=== PATIENT | male | born 1970 | race Caucasian/White ===

== ENCOUNTER 2017-08-04 05:12 | Emergency (ER) | payer SELFPAY ==
[~2017-08-04] VITALS: Ht 172.7 cm; Wt 112.0 kg
[2017-08-04 05:28] VITALS: BP 143/87; PULSE 90; RESP 18; TEMP 98.1; O2SAT 98
[2017-08-04] MEDS ORDERED: KETOROLAC TROMETHAMINE 30 MG/ML (IVP) VIAL IVP ONE (07:45)
[2017-08-04] MEDS ORDERED: SODIUM CHLORIDE 0.9% FLUSH 10 ML FLUSH IV FLUSH PRN (07:45)
[2017-08-04 07:47] VITALS: BP 152/83; PULSE 83; RESP 18; O2SAT 99
[2017-08-04] MEDS ORDERED: METF1000 PO (07:49)
[2017-08-04] MEDS ORDERED: XANA1TAB2 PO (07:49)
[2017-08-04] MEDS ORDERED: MONT10TA2 PO (07:49)
[2017-08-04] MEDS ORDERED: FISHCAP4 PO (07:49)
[2017-08-04] MEDS ORDERED: ASPI-146 PO (07:49)
[2017-08-04] MEDS ORDERED: ROSU1TAB8 PO (07:49)
[2017-08-04] MEDS ORDERED: OMEP20TA93 PO (07:49)
[2017-08-04] MEDS ORDERED: EMPA1TAB PO (07:49)
[2017-08-04] MEDS ORDERED: METO25TA3 PO (07:49)
[2017-08-04] MEDS ORDERED: LISI-515 PO (07:49)
--- NOTE | 2017-08-04 07:49 | PD ---
HPI Chief Complaint: Abdominal Pain Time Seen by Provider: 07:44 Travel History International Travel<30 days: No Contact w/Intl Traveler<30days: No Traveled to known affect area: No History of Present Illness HPI Patient presents with complaints of left lower quadrant abdominal pain for approximately 2 weeks. Reports completion of antibiotics for diverticulitis without resolution of symptoms. History of colonoscopy about a year ago with diverticuli. Reports a single episode of blood per stool approximately 2 weeks ago. Denies nausea vomiting diarrhea or fever. No new rashes. PFSH Past Medical History ?: Not Social History Tobacco Use: No Allergies-Medications (Allergen,Severity, Reaction): Coded Allergies: No Known Allergies (Verified Allergy, Unknown, 08/04/17) Reported Meds & Prescriptions Reported Meds & Active Scripts Active Reported Fish Oil + D3 (Fish Oil-Cholecalciferol) 1,200-1,000 Mg-Unit Cap 1 Cap PO DAILY Singulair (Montelukast Sodium) 10 Mg Tab 10 Mg PO HS Rosuvastatin (Rosuvastatin Calcium) 20 Mg Tab 20 Mg PO HS Xanax (Alprazolam) 1 Mg Tab 1 Mg PO Q6H PRN Lisinopril 20 Mg Tab 20 Mg PO DAILY Omeprazole 20 Mg Tab 20 Mg PO DAILY Ecotrin Regular Strength (Aspirin) 325 Mg Tabdr 325 Mg PO DAILY Metoprolol Tartrate 25 Mg Tab 25 Mg PO BID Jardiance (Empagliflozin) 10 Mg Tab 10 Mg PO DAILY Metformin (Metformin HCl) 1,000 Mg Tab 1,000 Mg PO BIDPC Review of Systems General / Constitutional: No: Fever Eyes: No: Visual changes HENT: No: Headaches Cardiovascular: No: Chest Pain or Discomfort Respiratory: No: Shortness of Breath Gastrointestinal: Positive: Abdominal Pain Genitourinary: No: Dysuria Musculoskeletal: No: Pain Skin: No Rash Neurologic: No: Weakness Psychiatric: No: Depression Endocrine: No: Polydipsia Hematologic/Lymphatic: No: Easy Bruising Physical Exam Narrative GENERAL: Well-nourished, well-developed patient. SKIN: Focused skin assessment warm/dry. HEAD: Normocephalic. EYES: No scleral icterus. No injection or drainage. NECK: Supple, trachea midline. No JVD or lymphadenopathy. CARDIOVASCULAR: Regular rate and rhythm without murmurs, gallops, or rubs. RESPIRATORY: Breath sounds equal bilaterally. No accessory muscle use. GASTROINTESTINAL: Abdomen soft, tender left lower quadrant positive rebound tenderness no guarding no hepatosplenomegaly, nondistended. MUSCULOSKELETAL: No cyanosis, or edema. BACK: Nontender without obvious deformity. No CVA tenderness. Data Data Last Documented VS Vital Signs Date Time Temp Pulse Resp B/P (MAP) Pulse Ox O2 Delivery O2 Flow Rate FiO2 08/04/17 08:43 85 18 144/71 (95) 99 08/04/17 07:47 Room Air 08/04/17 05:28 98.1 Orders Orders Complete Blood Count With Diff (08/04/17 07:44) Comprehensive Metabolic Panel (08/04/17 07:44) Lactic Acid (08/04/17 07:44) Ct Abd/Pel W Iv Contrast(Rout) (08/04/17 07:44) Iv Access Insert/Monitor (08/04/17 07:44) Ecg Monitoring (08/04/17 07:44) Oximetry (08/04/17 07:44) Sodium Chloride 0.9% Flush (Ns Flush) (08/04/17 07:45) Ketorolac Inj (Toradol Inj) (08/04/17 07:45) Piperacil-Tazo 3.375 Gm Premix (Zosyn 3. (08/04/17 09:45) Labs Laboratory Tests Test 08/04/17 07:50 White Blood Count 5.5 TH/MM3 Red Blood Count 5.50 MIL/MM3 Hemoglobin 15.4 GM/DL Hematocrit 45.6 % Mean Corpuscular Volume 82.9 FL Mean Corpuscular Hemoglobin 27.9 PG Mean Corpuscular Hemoglobin Concent 33.7 % Red Cell Distribution Width 13.1 % Platelet Count 165 TH/MM3 Mean Platelet Volume 9.1 FL Neutrophils (%) (Auto) 65.8 % Lymphocytes (%) (Auto) 21.6 % Monocytes (%) (Auto) 9.5 % Eosinophils (%) (Auto) 2.6 % Basophils (%) (Auto) 0.5 % Neutrophils # (Auto) 3.7 TH/MM3 Lymphocytes # (Auto) 1.2 TH/MM3 Monocytes # (Auto) 0.5 TH/MM3 Eosinophils # (Auto) 0.1 TH/MM3 Basophils # (Auto) 0.0 TH/MM3 CBC Comment DIFF FINAL Differential Comment Blood Urea Nitrogen 7 MG/DL Creatinine 1.10 MG/DL Random Glucose 160 MG/DL Total Protein 7.7 GM/DL Albumin 3.8 GM/DL Calcium Level 9.0 MG/DL Alkaline Phosphatase 80 U/L Aspartate Amino Transf (AST/SGOT) 59 U/L Alanine Aminotransferase (ALT/SGPT) 65 U/L Total Bilirubin 0.4 MG/DL Sodium Level 138 MEQ/L Potassium Level 4.1 MEQ/L Chloride Level 103 MEQ/L Carbon Dioxide Level 29.6 MEQ/L Anion Gap 5 MEQ/L Estimat Glomerular Filtration Rate 71 ML/MIN Lactic Acid Level 2.2 mmol/L [facility] Medical Decision Making Medical Screen Exam Complete: Yes Emergency Medical Condition: Yes Differential Diagnosis Diverticulitis, colitis, ischemic bowel, constipation Narrative Course Assessment plan discussed with patient and at bedside. CT the abdomen showed no acute intra-abdominal process. Prophylaxis for diverticulitis secondary to clinical presentation. 1. Mild hepatosplenomegaly. 2. Uncomplicated colonic diverticulosis. 3. 17 x 13 mm left adrenal myelolipoma. 4. Small left inguinal hernia containing only fat. 5. Mild degenerative changes and scoliosis of the thoracolumbar spine. Diagnosis Primary Impression: Abdominal pain Qualified Codes: R10.32 - Left lower quadrant pain Patient Instructions: General Instructions Additional Instructions: Encouraged to keep regular scheduled appointment with GI. Encouraged to return to emerge from with any onset of new symptoms. Encouraged a bland brat high- fiber diet. Med/Other Pt SpecificInfo: Prescription(s) given Scripts Metronidazole (Flagyl) 500 Mg Tab 500 MG PO BID for Infection, #14 TAB 0 Refills Prov: Jm Rg MD 08/04/17 Ciprofloxacin (Cipro) 500 Mg Tab 500 MG PO BID for Infection for 7 Days, #14 TAB 0 Refills Prov: Jm Rg MD 08/04/17 Tramadol (Ultram) 50 Mg Tab 50 MG PO Q6H Y for PAIN, #15 TAB 0 Refills Prov: Jm Rg MD 08/04/17 Disposition: 01 DISCHARGE HOME Condition: Good Jm Rg MD Aug 04, 2017 07:49
[2017-08-04 08:04] LABS: AUTOMATED NEUTROPHIL # 3.7 TH/MM3 (1.8-7.7); BASOPHIL % 0.5 % (0.0-2.0); EOSINOPHIL # 0.1 TH/MM3 (0-0.4); EOSINOPHIL % 2.6 % (0.0-4.0); HEMATOCRIT 45.6 % (39.0-51.0); HEMOGLOBIN 15.4 GM/DL (13.0-17.0); LYMPH % 21.6 % (9.0-44.0); LYMPHOCYTE # 1.2 TH/MM3 (1.0-4.8); MEAN CELL VOLUME 82.9 FL (80.0-100.0); MEAN CORPUSCULAR HEMOGLOBIN 27.9 PG (27.0-34.0); MEAN CORPUSCULAR HGB CONC 33.7 % (32.0-36.0); MEAN PLATELET VOLUME 9.1 FL (7.0-11.0); MONO % 9.5 % (0.0-8.0); MONOCYTE # 0.5 TH/MM3 (0-0.9); NEUT % 65.8 % (16.0-70.0); PLATELET COUNT 165 TH/MM3 (150-450); RED CELL DISTRIBUTION WIDTH 13.1 % (11.6-17.2); WHITE BLOOD COUNT 5.5 TH/MM3 (4.0-11.0)
[2017-08-04 08:12] LABS: CHLORIDE 103 MEQ/L (98-107); SODIUM (NA) 138 MEQ/L (136-145)
[2017-08-04] MEDS ORDERED: IOHEXOL 350 MG/ML 10 ML VIAL (for RAD DIAG) IVCONTRAST ONE (08:15)
[2017-08-04 08:16] LABS: ALBUMIN 3.8 GM/DL (3.4-5.0); BICARBONATE 29.6 MEQ/L (21.0-32.0); BLOOD UREA NITROGEN 7 MG/DL (7-18); GLUCOSE,RANDOM 160 MG/DL (74-106)
[2017-08-04 08:19] LABS: ALT (GPT) 65 U/L (12-78); AST (GOT) 59 U/L (15-37); GLOMERULAR FILTRATION RATE 71 ML/MIN (>89)
[2017-08-04 08:20] LABS: TOTAL BILIRUBIN ADULT 0.4 MG/DL (0.2-1.0); TOTAL PROTEIN 7.7 GM/DL (6.4-8.2)
[2017-08-04 08:22] LABS: ALKALINE PHOSPHATASE 80 U/L (45-117)
--- NOTE | 2017-08-04 08:32 | RADRPT ---
EXAM DATE/TIME: 08/04/2017 08:11 [place] COMPARISON: No previous studies available for comparison. INDICATIONS : Left lower abdominal pain. IV CONTRAST: 100 cc Omnipaque 350 (iohexol) IV ORAL CONTRAST: No oral contrast ingested. RADIATION DOSE: 21.92 CTDIvol (mGy) ; Patient body habitus MEDICAL HISTORY : Cardiovascular disease. Hypercholesterolemia. Hypertension.CAD,diabetes,GERD SURGICAL HISTORY : Sinus, stents ENCOUNTER: Initial ACUITY: 1 day PAIN SCALE: 8/10 LOCATION: Left lower quadrant TECHNIQUE: Volumetric scanning of the abdomen and pelvis was performed. Using automated exposure control and ad justment of the mA and/or kV according to patient size, radiation dose was kept as low as reasonably achievable to obtain optimal diagnostic quality images. DICOM format image data is available electro nically for review and comparison. FINDINGS: LOWER LUNGS: The visualized lower lungs are clear. LIVER: Mild hepatomegaly is noted. Homogeneous density without lesion. There is no dilation of the biliary tree. No calcified gallstones. SPLEEN: Mild splenomegaly is noted. PANCREAS: Within normal limits. KIDNEYS: Normal in size and shape. There is no mass, stone or hydronephrosis. ADRENAL GLANDS: There is a myelolipoma of the left adrenal gland measuring 17 x 13 mm. Right adrenal gland is unremar kable. VASCULAR: There is no aortic aneurysm. BOWEL/MESENTERY: Few scattered uncomplicated colonic diverticula are noted. No acute diverticulitis is noted. No acute appendicitis is noted. No bowel obstruction is noted. ABDOMINAL WALL: Within normal limits. RETROPERITONEUM: There is no lymphadenopathy. BLADDER: No wall thickening or mass. REPRODUCTIVE: Within normal limits. INGUINAL: No lymphadenopathy is noted. Small left inguinal hernia containing only fat is noted MUSCULOSKELETAL: Mild degenerative changes and scoliosis of the thoracolumbar spine are noted. CONCLUSION: 1. Mild hepatosplenomegaly. 2. Uncomplicated colonic diverticulosis. 3. 17 x 13 mm left adrenal myelolipoma. 4. Small left inguinal hernia containing only fat. 5. Mild degenerative changes and scoliosis of the thoracolumbar spine. Devante Dudley MD on August 04, 2017 at 8:24 Board Certified Radiologist. This report was verified electronically.
[2017-08-04 08:43] VITALS: BP 144/71; PULSE 85; RESP 18; O2SAT 99
[2017-08-04] MEDS ORDERED: PIPERACIL-TAZO 3.375 GM PREMIX 50 ML IV ONE (09:45)
[2017-08-04] MEDS ORDERED: METR-1 PO (10:28)
[2017-08-04] MEDS ORDERED: CIPR-9 PO (10:28)
[2017-08-04] MEDS ORDERED: TRAM50 PO (10:28)
[2017-08-04 10:31] VITALS: BP 135/75
--- NOTE | 2017-08-04 19:13 | EKG ---
Date Performed: 08/04/2017 Time Performed: 07:40:30 PTAGE: 47 years EKG: Sinus rhythm INFERIOR MYOCARDIAL INFARCTION ABNORMAL ECG NO PREVIOUS TRACING DOCTOR: Dee Dee Lopez Interpretating Date/Time 08/04/2017 19:12:10
== END 2017-08-04 10:46 | disposition home or self-care (01) ==
LOC: PHED 05:12
DX: R10.32 Left lower quadrant pain (principal); R16.2 Hepatomegaly with splenomegaly, not elsewhere classified; K57.30 Diverticulosis of large intestine without perforation or abscess without bleeding; K40.90 Unilateral inguinal hernia, without obstruction or gangrene, not specified as recurrent; R94.31 Abnormal electrocardiogram [ECG] [EKG]
CPT/HCPCS: 74177; 80053; 83605; 85025; 93005; 96365; 96375; 99285; J1885; J2543; Q9967